=== PATIENT | female | born 1990 | race Caucasian/White ===

== ENCOUNTER → 2016-11-02 | Outpatient (REF) | payer OTHER, BC | LOC: M LAB REF 18:59 | PROVIDERS: ATTEND Physician Assistant | DX: R30.0 Dysuria (principal) ==

== ENCOUNTER 2017-01-04 12:13 | Emergency (ER) | payer OTHER, MEDICAID ==
[~2017-01-04] VITALS: Ht 167.6 cm; Wt 60.0 kg
[2017-01-04] MEDS ORDERED: SODIUM (12:26)
[2017-01-04] MEDS ORDERED: SPIR50TA2 (12:26)
[2017-01-04] MEDS ORDERED: MAGN250T3 PO (12:26)
[2017-01-04] MEDS ORDERED: NAPROXEN 250 MG TAB PO ONE (13:00)
--- NOTE | 2017-01-04 14:00 | REP ---
LEFT WRIST COMPLETE: 01/04/2017 CLINICAL HISTORY: Trauma. No prior study. FINDINGS: Distal radius and ulna intact. Carpal bones and their joint spaces are without fracture or focal lesion. Metacarpals without focal lesion. IMPRESSION: Negative left wrist series for fracture, avulsion, subluxation or focal bone lesion Signed by Hay Corbett MD 01/04/2017 06:35 P
[2017-01-04] MEDS ORDERED: MOBI4TAB PO (14:16)
[2017-01-04 14:24] VITALS: BP 136/69
== END 2017-01-04 14:29 | disposition home or self-care (01) ==
LOC: M ED 12:13
DX: S63.502A Unspecified sprain of left wrist, initial encounter (principal); Y92.830 Public park as the place of occurrence of the external cause; Y93.H2 Activity, gardening and landscaping; Y99.0 Civilian activity done for income or pay; F41.9 Anxiety disorder, unspecified; Z79.899 Other long term (current) drug therapy

== ENCOUNTER 2024-01-20 14:13 | Emergency (ER) | payer MEDICAID, OTHER ==
[~2024-01-20] VITALS: Ht 170.2 cm; Wt 65.9 kg
[~2024-01-20 14:13] MED LIST: MAGN250T3 PO; MOBI4TAB PO; SODIUM; SPIR50TA4
[2024-01-20 14:14] VITALS: BP 160/82; TEMP 98.2; O2SAT 99
[2024-01-20] MEDS: NS 1,000 ML IV ONE (15:59)
[2024-01-20] MEDS: HALOPERIDOL LACTATE 5MG/ML VIAL IM ONE (15:59)
[2024-01-20 16:05] LABS: HEMATOCRIT 43.6 % (36.0-47.0); MEAN CORPUSCULAR HEMOGLOBIN 28.8 pg (27.0-33.0); MEAN CORPUSCULAR HGB CONC 34.4 g/dl (32.0-36.5); MEAN CORPUSCULAR VOLUME 83.8 fl (80.0-96.0); PLATELET COUNT, AUTOMATED 299 10^3/uL (150-450); WHITE BLOOD COUNT 11.9 10^3/uL (4.0-10.0)
[2024-01-20 16:12] LABS: ALBUMIN 4.9 G/DL (3.2-5.2); ALKALINE PHOSPHATASE 71 U/L (46-116); ALT/SGPT 26 U/L (7.0-40); AST/SGOT 25 U/L (<34); BILIRUBIN,TOTAL 0.9 MG/DL (0.3-1.2); BLOOD UREA NITROGEN 9 MG/DL (9-23); CARBON DIOXIDE LEVEL 20 MMOL/L (20-31); CHLORIDE LEVEL 102 MMOL/L (98-107); CREATININE FOR GFR 1.08 MG/DL (0.55-1.30); GLOMERULAR FILTRATION RATE > 60.0 (>60); GLUCOSE, FASTING 193 MG/DL (60-100); MAGNESIUM LEVEL 1.7 MG/DL (1.8-2.4); POTASSIUM SERUM 3.5 MMOL/L (3.5-5.1); SODIUM LEVEL 137 MMOL/L (136-145); TOTAL PROTEIN 8.2 G/DL (5.7-8.2)
[2024-01-20] MEDS ORDERED: ONDA-282 PO (17:25)
== END 2024-01-20 17:51 | disposition home or self-care (01) ==
LOC: M ED 14:13
DX: R11.15 Cyclical vomiting syndrome unrelated to migraine (principal); F12.10 Cannabis abuse, uncomplicated; F17.210 Nicotine dependence, cigarettes, uncomplicated; F10.10 Alcohol abuse, uncomplicated; Z79.899 Other long term (current) drug therapy
CPT/HCPCS: 80053; 83735; 85027; 96372; 99283; J1630